=== PATIENT | female | born 1990 | race Caucasian/White ===

== ENCOUNTER → 2017-07-03 15:29 | Outpatient (CLI) | payer OTHER, SELFPAY ==
[2017-07-03 17:48] LABS: Hematocrit 29.4 % (37-47); Hemoglobin 9.6 g/dl (12.0-15.0); Mean Corp Hgb Conc 32.7 g/gl (32-36); Mean Corpuscular Hgb 28.4 pg (27.0-32.0); Mean Platelet Vol. 11.5 fl (6.2-12.0); Platelet Count 179 K/mm3 (150-450); RBC Distribution Width CV 12.9 % (11.6-14.6); RBC Distribution Width SD 41.1 fl (35.1-43.9); Red Blood Count 3.38 M/mm3 (4.2-5.4)
[2017-07-03 17:49] LABS: Scan Indicated on CBC? Y/N NO
[2017-07-03 17:53] LABS: Glucose Challenge Gest 1H 50g 112 mg/dL (70-140)
== END ==
PROVIDERS: Visit Provider Obstetrics & Gynecology
DX: Z34.83 Encounter for supervision of other normal pregnancy, third trimester (principal); Z3A.00 Weeks of gestation of pregnancy not specified
CPT/HCPCS: 36415; 82950; 85027

== ENCOUNTER 2017-09-18 05:30 | Inpatient (IN) | payer OTHER, SELFPAY ==
[2017-09-11 09:07] VITALS: BMI 28.4
[2017-09-18] VITALS (20 sets, daily range): BP systolic 90–116; BP diastolic 47–76; PULSE 70–104; RESP 16–20; TEMP 36.1–36.9; O2SAT 94–100
[2017-09-18] MEDS: Lactated Ringers 1,000 ML 999 ML IV (06:00)
[2017-09-18 06:19] LABS: Mean Corp Hgb Conc 32.3 g/gl (32-36); Mean Corpuscular Hgb 26.2 pg (27.0-32.0); Mean Corpuscular Volume 81.4 fL (81-99); Mean Platelet Vol. 11.1 fl (6.2-12.0); Platelet Count 142 K/mm3 (150-450); RBC Distribution Width SD 44.3 fl (35.1-43.9); Red Blood Count 3.81 M/mm3 (4.2-5.4)
[2017-09-18 06:27] LABS: Prothrombin Time (Protime)PT. 13.3 SECONDS (11.7-14.9)
[2017-09-18 06:28] LABS: Partial Thromboplast Time 28.9 Seconds (24.1-36.2)
[2017-09-18 06:36] LABS: Scan Indicated on CBC? Y/N NO
[2017-09-18] MEDS: Lactated Ringers 1,000 ML 150 ML IV (06:53)
[2017-09-18] MEDS: Sodium Citrate/Citric Acid 30 ML UDC PO (06:53)
[2017-09-18] MEDS: Clindamycin 900 MG/50 ML BAG 75 MG IV (07:19)
[2017-09-18] MEDS: Ferrous Sulfate 325 MG Tablet PO (10:43)
[2017-09-18] MEDS: Prenatal Vits Tablet 1 TABLET PO (10:44)
[2017-09-18] MEDS: DiphenhydrAMINE 25 MG Capsule PO (10:44)
[2017-09-18] MEDS: 0.9% Saline Lock 10 ML Syringe IV (14:09)
[2017-09-18] MEDS: Ketorolac 30 MG/ML Syringe IV ×2 (14:09→20:40)
[2017-09-18] MEDS: Lactated Ringers 1,000 ML 100 ML IV (18:34)
--- NOTE | 2017-09-18 21:23 | PCM.OP.BLANK ---
Operative Report Date of Procedure: 09/18/17 PROCEDURE: Repeat C SECTION, lysis of adhesions Preoperative diagnosis: 39+ wk EGA Prior C section, planned repeat C section Postop diagnosis: 39+ wk EGA Prior C section, planned repeat C section Anesthesia: Spinal per Dahiana Cortes MD Surgeon: Leticia Chacon MD Menagerie Superintendent: DOMI Escobar EBL 800 cc Complications: none Drains: Nevarez draining clear yellow urine Fluids: replacement LR Findings: At amniotomy, clear fluid was noted. Avilez viable female vertex presentation. Apgars 8/9. Baby weight:7# 6 oz There was a normal appearing uterus, fallopian tubes and ovaries bilaterally. There was a dense adhesion noted between the posterior surface of the anterior abdominal wall and the L uterine fundus. PATH: Routine cord gases Narrative account: After the risks, benefits and alternatives of the procedure were reviewed with the patient, informed consent was obtained. The patient was taken to the Operating room with an IV running . She was placed in a seated position on the operating room table and a Spinal was administered. The patient was the repositioned to the dorsal supine position with leftward displacement of the uterus , briefly frog-legged for placement of the Nevarez catheter under sterile technique, and then repositioned again to dorsal supine position with leftward displacement of the uterus, and prepped and draped in the usual sterile fashion. Once the spinal was deemed adequate, a Pfannenstiel skin incision was created using the knife . The incision was carried down to the rectus fascia using the knife. The fascia was nicked in the midline. The fascial incision was extended bilaterally using curved Faulkner scissors. The superior aspect of the fascial incision was grasped with Annalisa clamps and tented up and the underlying rectus abdominal muscles were dissected free. In a similar manner, the inferior aspect of the facial incision was grasped with Annalisa clamps tented up and the underlying rectus abdominal muscles were dissected free. The rectus abdominis muscles divided in the midline by blunt dissection . The peritoneum was identified and entered by sharp dissection. The peritoneal incision was extended inferiorly and then superiorly using Metzenbaum scissors. There was a dense adhesion noted at the left anterior uterine fundus. The peritoneum was stretched laterally and a bladder blade was inserted. The uterine incision was then created using Metzenbaum scissors.The uterine incision was extended by blunt dissection in a caudad- cephalad orientation using the tin tie machine operator automatic's fingertips. Clear fluid was noted at amniotomy. The vertex was then delivered. The OP and nares were bulb suctioned on the abdomen. The shoulders delivered easily. The umbilical cord clamped times two and cut. The baby girl was shown briefly to her parents and then passed off to the nurse awaiting delivery. The baby had a spontaneous, vigorous cry. The umbilical cord was doubly clamped for later cord gas collection. The placenta was then delivered. The uterus was exteriorized and cleared of clots and debris and the uterine incision tagged with Ring clamps as needed for hemostasis. The dense adhesion between the anterior abdominal wall and the left uterine fundus was doubly clamped divided, and ligated at both ends. Excellent hemostasis was noted. The cervix was the dilated with a ring forceps which was then passed off the field. The uterine incision was repaired with 0 Vicryl in a running locked fashion. A second imbricating layer was then placed, using 0 Monocryl in running nonlocked fashion. The uterus, fallopian tubes and ovaries were then inspected and returned to the abdominal cavity. The gutters were cleared of clots and debris. The uterine incision and fallopian tubes were again inspected. Excellent hemostasis was noted. Ruben was dusted over the uterine incision and anterior uterine fundus at the site of the adhesiolysis, for continued hemostasis. The rectus abdominis and peritoneal edges were reapproximated in the midline with interrupted vertical mattress stitches of 0 Vicryl . Excellent hemostasis was noted at the subfascial space Ruben was lightly dusted on this layer. The fascia was closed in a running nonlocked fashion Stratofix. The Subcutaneous fatty tissue was Bovie cauterized as needed for hemostasis. This layer was then reapproximated with a nonlocked running 3-0 Vicryl. The skin edges were closed in a Subcuticular stitch of 4-0 Monocryl. The incision was cleansed, and a sterile dressing (Mepilex) was applied. The patient was then transferred to the recovery room bed in stable condition after tolerating the procedure well. Sponge, lap, needle and instrument counts correct times two. Medications given preop and intraoperatively included: Ancef two grams IV given assistant front desk manager to the operating room. The patient also received Pitocin given IV after cord clamp, and Toradol 30 mg IV after cord clamp. For a complete listing of medications given preop and intraoperatively, please see the anesthesia record.
[2017-09-19] VITALS (7 sets, daily range): BP systolic 102–115; BP diastolic 49–62; PULSE 74–99; RESP 16–18; TEMP 36.7–37.5; O2SAT 95–99
[2017-09-19] MEDS: Ketorolac 30 MG/ML Syringe IV ×2 (02:24→08:03)
[2017-09-19 06:09] LABS: Hematocrit 22.9 % (37-47); Hemoglobin 7.5 g/dl (12.0-15.0); Mean Corp Hgb Conc 32.8 g/gl (32-36); Mean Corpuscular Hgb 26.6 pg (27.0-32.0); Mean Corpuscular Volume 81.2 fL (81-99); Mean Platelet Vol. 10.6 fl (6.2-12.0); Platelet Count 115 K/mm3 (150-450); RBC Distribution Width CV 15.2 % (11.6-14.6); Red Blood Count 2.82 M/mm3 (4.2-5.4); White Blood Count 8.9 K/mm3 (4.4-11.0)
[2017-09-19 06:11] LABS: Scan Indicated on CBC? Y/N NO
[2017-09-19] MEDS: 0.9% Saline Lock 10 ML Syringe IV (08:03)
[2017-09-19] MEDS: Ferrous Sulfate 325 MG Tablet PO ×2 (08:03→15:49)
--- NOTE | 2017-09-19 08:12 | PCM.PN.OB ---
Subjective: POD#1 repeat C section Doing well. no concerns. Pain control adequate and IV to saline lock to continue toradol today. No n/v. No dizziness or feeling week. + flatus. - Physical Exam General: Alert, Oriented x3, Cooperative, No apparent distress HEENT: Atraumatic Neck: Supple Abdomen: Soft - fundus firm NT at approx 1 cm inferior to umbilicus Skin: Incision - Mepilex intact. Minimal shadow drainage noted on R side each less than 5 mm size Neurological: Cranial nerves II-XII grossly intact Psych/Mental Status: Normal Affect Vital Signs Temp Pulse Resp BP Pulse Ox 99.0 F 76 16 115/52 L 97 09/19/17 07:45 09/19/17 07:45 09/19/17 07:45 09/19/17 07:45 09/19/17 07:45 Oxygen Delivery Method Room Air Weight: 70.5 kg Body Mass Index (BMI) 28.4 Intake and Output for Last 24 Hours 09/17/17 09/18/17 09/19/17 23:59 23:59 23:59 Intake Total 4700 / 4700 1000 / 1000 Output Total 2200 / 2200 2800 / 2800 Balance 2500 / 2500 -1800 / -1800 Laboratory Tests Past 24 Hrs 09/19/17 06:06 WBC 8.9 RBC 2.82 L Hgb 7.5 L Hct 22.9 L MCV 81.2 MCH 26.6 L MCHC 32.8 RDW 15.2 H RDW Differential 45.0 H Plt Count 115 L MPV 10.6 Medical Necessity - Tobacco Use Smoking Status: Never smoker Assessment/Plan POD#1 repeat C section Stable postop. Inc diet and activity as tolerated. Begin po meds. Voiding trial . IV to S/L for continue Toradol today. Acute blood loss anemia superimposed on iron deficiency anemia of . VSS and asx. Repeat CBC tomorrow. Iron bid planned Continue care.
--- NOTE | 2017-09-19 08:18 | PCM.DCCSEC ---
Discharge Diet: No Restrictions Return to work on:: 11/05/17 May resume sexual activity in: 4-6 weeks Lifting Restrictions: 20 pounds Additional Activity Instructions:: Nothing in the vagina for 4-6 weeks. You may return to work/school in 6 weeks. Change Dressing in (Days):: 4 Remove Dressing in (days):: 4 Cleanse incision/area with: Soap & Water, Keep Dressing Clean & Dry Additional Instructions: If you experience any of the following, contact your healthcare provider. Bleeding that soaks a pad every hour for 2 hours Fever 100.4 or higher Unrelieved incision or abdominal pain Swelling, redness, discharge or bleeding from your incision Problems urinating (including inability to urinate or burning while urinating). Visual changes Severe headache Flu-like symptoms Pain or redness in one of both of your breasts Pain, warmth, tenderness or swelling in your legs, especially the calf area Frequent nausea and vomiting Symptoms of depression or anxiety If you experience any of the following, call 911 or go to the nearest Emergency Room. Chest pain Problems breathing Seizure activity Partial or complete paralysis of a body part, slurred speech, weakness or drooping of the face, or a sudden inability to walk or hold your balance Allergies/Adverse Reactions: Allergies Penicillins Allergy (Verified 09/18/17 06:22) Unknown Medications to take at Discharge Vits [Prenatabs FA ] 1 tablet PO DAILY 09/11/17 Acetaminophen [Tylenol] 1,000 mg PO Q8H PRN tablet 09/19/17 Ferrous Sulfate 325 mg PO BID #60 09/19/17 Naproxen [Naprosyn] 250 - 500 mg PO Q8H PRN PRN #30 tab 09/19/17 Oxycodone [Oxyir] 5 - 10 mg PO Q4H PRN PRN 7 Days #28 tablet 09/19/17 Senna/Docusate Sodium [Senokot-S] 1 - 2 tab PO DAILY PRN #30 tab 09/19/17 The following prescriptions were given: Oxycodone [Oxyir] 5 - 10 mg PO Q4H PRN PRN 7 Days #28 tablet PRN Reason: Mod-Severe Pain (-01/30) Naproxen [Naprosyn] 250 - 500 mg PO Q8H PRN PRN #30 tab PRN Reason: Mild Pain (-06/30) Senna/Docusate Sodium [Senokot-S] 1 - 2 tab PO DAILY PRN #30 tab PRN Reason: Constipation Ferrous Sulfate 325 mg PO BID #60 Orders to be completed after discharge: Electric breast pump Time Frame: 1 Year, Location: None Selected Follow-Up: Call to make an appointment with your doctor for an incision check in 1-2 weeks. You will also need a 6 week post- follow up appointment. Please Follow Up With: Leticia Chacon MD - [phone] When: Call to make an appointment for an incision check in 2 weeks. Primary Care Physician: Salvador Burton MD [Primary Care Provider] - Proposed Discharge Date: 09/20/17
--- NOTE | 2017-09-19 08:23 | DCINST_ITS ---
Discharge Diet: No Restrictions Return to work on:: 11/05/17 May resume sexual activity in: 4-6 weeks Lifting Restrictions: 20 pounds Additional Activity Instructions:: Nothing in the vagina for 4-6 weeks. You may return to work/school in 6 weeks. Change Dressing in (Days):: 4 Remove Dressing in (days):: 4 Cleanse incision/area with: Soap & Water, Keep Dressing Clean & Dry Additional Instructions: If you experience any of the following, contact your healthcare provider. * Bleeding that soaks a pad every hour for 2 hours * Fever 100.4 or higher * Unrelieved incision or abdominal pain * Swelling, redness, discharge or bleeding from your incision * Problems urinating (including inability to urinate or burning while urinating) . * Visual changes * Severe headache * Flu-like symptoms * Pain or redness in one of both of your breasts * Pain, warmth, tenderness or swelling in your legs, especially the calf area * Frequent nausea and vomiting * Symptoms of depression or anxiety If you experience any of the following, call 911 or go to the nearest Emergency Room. * Chest pain * Problems breathing * Seizure activity * Partial or complete paralysis of a body part, slurred speech, weakness or drooping of the face, or a sudden inability to walk or hold your balance Allergies/Adverse Reactions: Allergies Penicillins Allergy (Verified 09/18/17 06:22) Unknown Medications to take at Discharge Vits [Prenatabs FA ] 1 tablet PO DAILY 09/11/17 Acetaminophen [Tylenol] 1,000 mg PO Q8H PRN tablet 09/19/17 Ferrous Sulfate 325 mg PO BID #60 09/19/17 Naproxen [Naprosyn] 250 - 500 mg PO Q8H PRN PRN #30 tab 09/19/17 Oxycodone [Oxyir] 5 - 10 mg PO Q4H PRN PRN 7 Days #28 tablet 09/19/17 Senna/Docusate Sodium [Senokot-S] 1 - 2 tab PO DAILY PRN #30 tab 09/19/17 The following prescriptions were given: Oxycodone [Oxyir] 5 - 10 mg PO Q4H PRN PRN 7 Days #28 tablet PRN Reason: Mod-Severe Pain () Naproxen [Naprosyn] 250 - 500 mg PO Q8H PRN PRN #30 tab PRN Reason: Mild Pain (-06/30) Senna/Docusate Sodium [Senokot-S] 1 - 2 tab PO DAILY PRN #30 tab PRN Reason: Constipation Ferrous Sulfate 325 mg PO BID #60 Orders to be completed after discharge: Electric breast pump Time Frame: 1 Year, Location: None Selected Follow-Up: Call to make an appointment with your doctor for an incision check in 1-2 weeks. You will also need a 6 week post- follow up appointment. Please Follow Up With: Leticia Chacon MD - [phone] When: Call to make an appointment for an incision check in 2 weeks. Primary Care Physician: Salvador Burton MD [Primary Care Provider] - Proposed Discharge Date: 09/20/17
[2017-09-19] MEDS: Prenatal Vits Tablet 1 TABLET PO (10:52)
--- NOTE | 2017-09-19 14:03 | NURSING ---
urine this morning, unmeasured times 2
[2017-09-19] MEDS: Naproxen 250 MG Tablet PO (14:31)
[2017-09-19] MEDS: Acetaminophen 500 MG Tablet 1000 MG PO (15:48)
[2017-09-20] MEDS: Acetaminophen 500 MG Tablet 1000 MG PO ×2 (02:10→10:23)
[2017-09-20 02:15] VITALS: BP 118/70; PULSE 83; RESP 18; TEMP 36.5; O2SAT 97
[2017-09-20 05:30] LABS: Hematocrit 23.6 % (37-47); Hemoglobin 7.6 g/dl (12.0-15.0); Mean Corp Hgb Conc 32.2 g/gl (32-36); Mean Corpuscular Hgb 27.1 pg (27.0-32.0); Mean Corpuscular Volume 84.3 fL (81-99); Mean Platelet Vol. 10.9 fl (6.2-12.0); Platelet Count 134 K/mm3 (150-450); RBC Distribution Width CV 14.9 % (11.6-14.6); RBC Distribution Width SD 44.1 fl (35.1-43.9); White Blood Count 10.1 K/mm3 (4.4-11.0)
[2017-09-20 05:31] LABS: Scan Indicated on CBC? Y/N NO
--- NOTE | 2017-09-20 07:16 | PCM.PN.OB ---
Subjective: POD#2 Repeat C/S Doing well. Breast feeding. Pain control adequate. Would like to go home today. Asking about driving, wound care - Physical Exam General: Alert, Oriented x3, Cooperative, No apparent distress HEENT: Atraumatic Neck: Supple Abdomen: Soft - Fundus firm NT at 1-2 cm inferior to umbilicus Skin: Incision - Mepilex CDI. no shadow drainage Neurological: Cranial nerves II-XII grossly intact Psych/Mental Status: Normal Affect Vital Signs Temp Pulse Resp BP Pulse Ox 97.7 F L 83 18 118/70 97 09/20/17 02:15 09/20/17 02:15 09/20/17 02:15 09/20/17 02:15 09/20/17 02:15 Oxygen Delivery Method Room Air Weight: 70.5 kg Body Mass Index (BMI) 28.4 Intake and Output for Last 24 Hours 09/18/09/19/17 09/20/17 23:59 23:59 23:59 Intake Total 4700 / 4700 1000 / 1000 Output Total 2200 / 2200 2800 / 2800 Balance 2500 / 2500 -1800 / -1800 Laboratory Tests Past 24 Hrs 09/20/17 05:25 WBC 10.1 RBC 2.80 L Hgb 7.6 L Hct 23.6 L MCV 84.3 MCH 27.1 MCHC 32.2 RDW 14.9 H RDW Differential 44.1 H Plt Count 134 L MPV 10.9 Medical Necessity - Tobacco Use Smoking Status: Never smoker Assessment/Plan POD#2 repeat C section Stable postop. Acute blood loss anemia superimposed on iron deficiency anemia of . STABLE CBC. VSS and asx. Iron bid planned Dischg home per pt request. RTO in 2 wk for postop incision check. Reviewed dischg instructions, wound care.
--- NOTE | 2017-09-20 07:18 | PCM.DC.SUM ---
Discharge Date and Diagnosis Date of Admission: 09/18/17 - 39 wk repeat C/S Date of Discharge: 09/20/17 - same Hospital Course and Treatment Operations: - - Repeat C section Summary of Care Provided: The patient is a 27 year old female at 39 + wk EGA presents for scheduled repeat C/S. C/S performed on 09/18/17. Adhesion noted at uterine fundus to abdominal wall. Procedure uncomplicated. Delivered horton viable female Ap 8/9. Wt 7# 6 oz. Postop recovery course uneventful. Acute blood loss anemia superimposed in iron deficiency anemia of . Hgb stable at 7.6 g/dl. on repeat evaluation. Pt asymptomatic and vitals stable. requested dischg home on POD#2 RTO in 2 wk for postop exam. Discharge Diet: No Restrictions Return to work on:: 11/05/17 May resume sexual activity in: 4-6 weeks Additional Activity Instructions:: Nothing in the vagina for 4-6 weeks. You may return to work/school in 6 weeks. Change Dressing in (Days):: 4 Remove Dressing in (days):: 4 Cleanse incision/area with: Soap & Water, Keep Dressing Clean & Dry Home Medications: Medications to take at Discharge Vits [Prenatabs FA ] 1 tablet PO DAILY 09/11/17 Acetaminophen [Tylenol] 1,000 mg PO Q8H PRN tablet 09/19/17 Ferrous Sulfate 325 mg PO BID #60 09/19/17 Naproxen [Naprosyn] 250 - 500 mg PO Q8H PRN PRN #30 tab 09/19/17 Oxycodone [Oxyir] 5 - 10 mg PO Q4H PRN PRN 7 Days #28 tablet 09/19/17 Senna/Docusate Sodium [Senokot-S] 1 - 2 tab PO DAILY PRN #30 tab 09/19/17 Following Prescrptions Were Given to Patient: Oxycodone [Oxyir] 5 - 10 mg PO Q4H PRN PRN 7 Days #28 tablet PRN Reason: Mod-Severe Pain (4-10/10) Naproxen [Naprosyn] 250 - 500 mg PO Q8H PRN PRN #30 tab PRN Reason: Mild Pain (1-3/10) Senna/Docusate Sodium [Senokot-S] 1 - 2 tab PO DAILY PRN #30 tab PRN Reason: Constipation Ferrous Sulfate 325 mg PO BID #60 Other Amb Orders: Electric breast pump Time Frame: 1 Year, Location: None Selected Primary Care Physician: Salvador Burton MD [Primary Care Provider] - Please Follow Up With: Leticia Chacon MD - [phone] When: Call to make an appointment for an incision check in 2 weeks. Medical Necessity - Tobacco Use Smoking Status: Never smoker Meaningful Use Info Meaningful Use Diagnoses (Choose all that apply): None applicable
[2017-09-20 08:00] VITALS: BP 105/61; PULSE 77; RESP 15; TEMP 36.3
[2017-09-20] MEDS: Senna/Docusate Sodium 1 Tablet PO (08:42)
[2017-09-20] MEDS: Ferrous Sulfate 325 MG Tablet PO (08:57)
[2017-09-20] MEDS: Prenatal Vits Tablet 1 TABLET PO (10:20)
--- NOTE | 2017-09-20 11:55 | NURSING ---
infant and maternal bracelet numbers match; infant placed in car seat per mother dc to home
== END 2017-09-20 12:05 | disposition home health service (06) | DRG 765 ==
PROVIDERS: Admitting Provider Obstetrics & Gynecology; Family Provider Family Medicine; PCP Family Medicine; Visit Provider Obstetrics & Gynecology
PROC: 10D00Z1 Extraction of Products of Conception, Low, Open Approach (ICD-10-PCS; CPT 59514; principal; 2017-09-18 07:15)
DX: O34.219 Maternal care for unspecified type scar from previous cesarean delivery (principal); D62 Acute posthemorrhagic anemia; Z3A.39 39 weeks gestation of pregnancy; Z37.0 Single live birth; O99.02 Anemia complicating childbirth; D50.9 Iron deficiency anemia, unspecified
CPT/HCPCS: 85027; 85610; 85730; 86850; 86900; 99218; J7120; A4216; G0378; J2405

== ENCOUNTER → 2019-05-16 10:11 | Outpatient (CLI) | payer OTHER, SELFPAY | PROVIDERS: Visit Provider Obstetrics & Gynecology | DX: Z12.4 Encounter for screening for malignant neoplasm of cervix (principal); Z11.3 Encounter for screening for infections with a predominantly sexual mode of transmission ==

== ENCOUNTER → 2020-02-17 11:56 | Outpatient (CLI) | payer OTHER, SELFPAY ==
[2017-09-11 09:07] VITALS: BMI 28.4
[2020-02-17 13:47] LABS: Absolute Lymphocyte Count 1.16 X10^3/uL (0.83-4.51); Absolute Neutrophil Count 3.8 X10^3/uL (2.0-7.7); Basophil# 0.01 X10^3/uL; Basophil% 0.2 % (0-1); Eosinophil# 0.05 X10^3/uL; Eosinophils% 0.9 % (0-5); Hematocrit 33.9 % (37-47); Lymphocyte # 1.16 X10^3/ul (4.0); Lymphocyte % 20.8 % (19-41); Mean Corp Hgb Conc 32.4 g/dL (32-36); Mean Corpuscular Hgb 26.4 pg (27.0-32.0); Mean Corpuscular Volume 81.3 fL (81-99); Mean Platelet Vol. 12.6 fl (6.2-12.0); Monocyte# 0.56 X10^3/uL; NRBC Flagged by Analyzer 0 % (0-5); Neutrophil # 3.79 X10^3/uL (2.7-7.7); Neutrophil % 67.7 % (47-70); Platelet Count 222 K/mm3 (150-450); RBC Distribution Width CV 14.7 % (11.6-14.6); RBC Distribution Width SD 42.4 fl (35.1-43.9); Red Blood Count 4.17 M/mm3 (4.2-5.4); White Blood Count 5.6 K/mm3 (4.4-11.0)
[2020-02-17 13:51] LABS: Color, Urine Yellow (Yellow); Glucose, Dipstick Normal (Normal); Ketone-Dipstick Negative (Negative); Leukocyte Esterase-Dipstick Negative /ul (Negative); Nitrite-Dipstick Negative (Negative); Occult Blood-Urine Negative /ul (Negative); Protein-Dipstick Negative (Negative); Urine Bilirubin Dipstick Negative (Negative); Urine Clarity Clear (Clear); Urine Urobilinogen Normal (Normal)
[2020-02-17 14:04] LABS: Amphetamine Urine VISTA NEGATIVE (<1000 ng/mL); Barbiturate Urine VISTA NEGATIVE (< 200 ng/mL); Benzodiazepine Urine VISTA NEGATIVE (< 200 ng/mL); Cocaine Urine VISTA NEGATIVE (< 300 ng/mL); Ecstacy Urine VISTA NEGATIVE (< 500 ng/mL); Methadone Urine VISTA NEGATIVE (< 300 ng/mL); PCP Urine VISTA NEGATIVE (< 25 ng/mL); THC Urine VISTA NEGATIVE (< 50 ng/mL); Vista UDS pH Range 6
[2020-02-17 14:09] LABS: Thyroid Stim Hormone (TSH) 1.54 uIU/mL (0.358-3.74)
[2020-02-17 14:44] LABS: HIV - WCH Non-Reactive (Nonreactive); Hepatitis B Surface Antigen Non-Reactive (Nonreactive); Hepatitis C Antibody Non-Reactive (Nonreactive); Rubella IgG 329.6 IU/mL
[2020-02-19 01:11] LABS: Prenatal RPR NONREACTIVE (NONREACTIVE)
[2020-02-20 03:06] LABS: Chlamydia By Nucleic Acid AMP Negative (Negative)
[2020-02-20 06:45] LABS: Gonococcus By Nucleic Acid AMP Negative (Negative)
== END ==
PROVIDERS: Visit Provider Obstetrics & Gynecology
DX: Z34.81 Encounter for supervision of other normal pregnancy, first trimester (principal)
CPT/HCPCS: 36415; 80307; 81002; 84443; 85025; 86703; 86762; 86803; 87340; 87491; 87591

== ENCOUNTER → 2020-07-05 14:03 | Outpatient (CLI) | payer OTHER, SELFPAY ==
[2017-09-11 09:07] VITALS: BMI 28.4
[2020-07-05 15:22] LABS: Hematocrit 32.6 % (37-47); Hemoglobin 10.5 g/dL (12.0-15.0); Mean Corp Hgb Conc 32.2 g/dL (32-36); Mean Corpuscular Volume 90.1 fL (81-99); Platelet Count 200 K/mm3 (150-450); RBC Distribution Width SD 45.8 fl (35.1-43.9); Red Blood Count 3.62 M/mm3 (4.2-5.4); White Blood Count 6.3 K/mm3 (4.4-11.0)
[2020-07-05 15:30] LABS: Glucose Challenge Gest 1H 50g 113 mg/dL (70-140)
== END ==
PROVIDERS: Visit Provider Student in an Organized Health Care Education/Training Program
DX: Z34.82 Encounter for supervision of other normal pregnancy, second trimester (principal)
CPT/HCPCS: 36415; 82950; 85027

== ENCOUNTER → 2020-09-10 | Outpatient (CLI) | payer OTHER, SELFPAY ==
[2017-09-11 09:07] VITALS: BMI 28.4
== END | disposition home or self-care (01) ==
LOC: LABSPEC 15:10
PROVIDERS: Visit Provider Obstetrics & Gynecology
DX: Z36.85 Encounter for antenatal screening for Streptococcus B (principal)
CPT/HCPCS: 87081

== ENCOUNTER → 2020-09-24 | Outpatient (CLI) | payer OTHER, SELFPAY | END | disposition home or self-care (01) | LOC: LABSPEC 15:38 | PROVIDERS: PCP Family Medicine; Referring Provider Obstetrics & Gynecology; Visit Provider Obstetrics & Gynecology | DX: Z03.818 Encounter for observation for suspected exposure to other biological agents ruled out (principal) | CPT/HCPCS: 87635; C9803; U0005; U0003 ==

== ENCOUNTER 2020-09-28 05:00 | Inpatient (IN) | payer OTHER, SELFPAY ==
[2017-09-11 09:07] VITALS: BMI 28.4
[2020-09-28] VITALS (32 sets, daily range): BP systolic 80–122; BP diastolic 39–71; PULSE 49–129; RESP 12–20; TEMP 35.5–36.6; O2SAT 96–100; BMI 28.5
[2020-09-28] MEDS: Lactated Ringers 1,000 ML 999 ML IV (05:23)
[2020-09-28 05:50] LABS: Absolute Lymphocyte Count 0.92 X10^3/uL (0.83-4.51); Absolute Neutrophil Count 4.7 X10^3/uL (2.0-7.7); Basophil# 0.02 X10^3/uL; Basophil% 0.3 % (0-1); Eosinophil# 0.11 X10^3/uL; Eosinophils% 1.8 % (0-5); Hemoglobin 9.6 g/dL (12.0-15.0); Lymphocyte # 0.92 X10^3/ul (0.83-4.51); Mean Corp Hgb Conc 33.1 g/dL (32-36); Mean Corpuscular Hgb 29.5 pg (27.0-32.0); Mean Corpuscular Volume 89.2 fL (81-99); Mean Platelet Vol. 11.7 fl (6.2-12.0); Monocyte# 0.38 X10^3/uL; Monocyte% 6.2 % (0-10); NRBC Flagged by Analyzer 0 % (0-5); Neutrophil # 4.65 X10^3/uL (2.7-7.7); Neutrophil % 75.6 % (47-70); Platelet Count 126 K/mm3 (150-450); RBC Distribution Width CV 13.5 % (11.6-14.6); RBC Distribution Width SD 43.9 fl (35.1-43.9); Red Blood Count 3.25 M/mm3 (4.2-5.4); White Blood Count 6.2 K/mm3 (4.4-11.0)
[2020-09-28] MEDS: Acetaminophen 500 MG Tablet 1000 MG PO ×2 (05:59→14:51)
[2020-09-28] MEDS: Lactated Ringers 1,000 ML 150 ML IV (06:24)
[2020-09-28] MEDS: Sodium Citrate/Citric Acid 30 ML UDC PO (07:10)
--- NOTE | 2020-09-28 07:43 | FALS_PTH ---
PATIENT: CARIE WARNER LOC: [facility] U#:[id number] AGE/SX: 30/F ROOM: [facility]009 RE09/28/[address]: Dr. Adelita Carter MD : [id number] BED: 1 DIS: 10/01/2020 SPEC #: [id number] RECD: 09/28/20 09:11 STATUS: TRISH REAl #: [id number] COLE: 09/28/20 07:[address]: Adelita Em DEPT: SURGICAL PATHOLOGY RECD BY: Opal Pope ENTERED: 09/28/20 09:51 SP TYPE: FALL TUBES OTHR DR: Dr. Trena Wallace, DO Tissues: Fallopian tube Procedures: Surgery Specimen Level II HEADER OPERATION: Tubal ligation PRE-OP DIAGNOSIS: Sterilization TISSUE SUBMITTED: Fallopian tubes MICROSCOPIC DIAGNOSIS Bilateral fallopian tubes, salpingectomy: Bilateral fallopian tubes, no pathologic diagnosis. JASPER:mackenzie 09/29/2020 MICROSCOPIC DESCRIPTION Slides are reviewed. GROSS DESCRIPTION Received in fixative is one container labeled with the patient's name and designated bilateral fallopian tubes, left suture. The specimen consists of bilateral fallopian tubes including fimbrial ends. The right fallopian tube measures 7 cm in length and 0.4 cm in diameter and the left fallopian tube measures 8 cm in length and 0.5 cm in diameter. Sections reveal unremarkable cut surfaces. [facility] sections are submitted in two cassettes as follows: 1 ? right fallopian tube, 2 ? left fallopian tube. / JASPER:mackenzie 09/28/20 TC:4 CPT: 36884 x2
--- NOTE | 2020-09-28 08:43 | PCM.HP.OB ---
HPI - General General Date of Admission: 09/28/20 HPI Narrative CARIE WARNER, is a 30 F @ 39 wga who presents for scheduled repeat section and bilateral salpingectomy. Maternal Data Information ERMA Calculator Estimated Delivery Date Method Current WG Current Estimate 10/05/20 Manual 39w 0d [facility] Medical History (Updated 09/28/20 @ 08:[address] Adelita Carter MD) Polyhydramnios Home Medications Prenatabs FA 1 tab PO DAILY 09/11/17 [History Last Taken 09/27/20] Ferrous Sulfate 325 mg PO BID #60 09/19/17 [Rx Last Taken 09/26/20] calcium mg PO 09/28/20 [History Last Taken 09/26/20] magnesium 100 mg PO DAILY 09/28/20 [History Last Taken 09/26/20] Allergy/AdvReac Type Severity Reaction Status Date / Time Penicillins Allergy Unknown Unknown Verified 09/28/20 05:23 Family History (Updated 09/28/20 @ 08:[address] Adelita Carter MD) Father Hypertension Surgical History (Updated 09/28/20 @ 08:[address] Adelita Carter MD) Previous section [place] teeth removed Social History Smoking Status: Never smoker History 3 Elective abortions 0 Hx Para 2 Spontaneous abortions 0 Hx # Term Pregnancies 2 Ectopic pregnancies 0 Hx # Pregnancies 0 Multiple births 0 # of living children 2 Vital Signs Vital Signs Vital Signs: 09/28/20 05:48 09/28/20 06:00 Temperature 97.5 F L Temperature Source Temporal Pulse Rate 97 Pulse Rhythm Regular Respiratory Rate 18 Respiratory Effort Normal Non-Labored Respiratory Depth Normal Respiratory Pattern Normal Blood Pressure 122/71 H Blood Pressure Mean 88 Blood Pressure Source Monitor Blood Pressure Position Semi-Fowlers Blood Pressure Location Left Arm Pulse Ox 97 Oxygen Delivery Method Room Air Room Air Weight Weight: 70.67 kg Body Mass Index (BMI) 28.5 Physical Exam Const alert, oriented x3 and no apparent distress HEENT normocephalic Resp normal respiratory effort and normal air movement Cardio regular rate and regular rhythm GI soft to palpation, non-tender and non-distended Inspection: gravid Labs Labs Labs: Blood Type A POSITIVE Antibody Screen NEGATIVE Hct 29.0 % (37-47) L Hgb 9.6 g/dL (12.0-15.0) L Rubella IgG Antibody 329.6 IU/mL Hep Bs Antigen Non-Reactive (Nonreactive) Neisseria gonorrhoeae DNA (KEVEN) Negative (Negative) HIV 1&2 Antibody Non-Reactive (Nonreactive) C.trachomatis DNA (PCR) Negative (Negative) Glucose 1 Hr 50 gm 113 mg/dL (70-140) Rhogam given: No Miscellaneous Test Assessment & Plan (1) 39 weeks gestation of : PLAN: Proceed with repeat C/S, bilateral salpingectomy as planned.
[2020-09-28] MEDS: Ondansetron 4 MG/2 ML Vial IV (08:59)
--- NOTE | 2020-09-28 08:59 | EX.PCM.OBRPT ---
Assessment & Plan (1) Encounter for sterilization: (2) Delivery by section: Maternal Data Information ERMA Calculator Estimated Delivery Date Method Current WG Current Estimate 10/05/20 Manual 40w 3d Details Operative Information Date of Procedure: 09/28/20 Pre-Operative Diagnosis: 1. 39 weeks gestation 2. History prior section x 2 3. Sterilization request Post-Operative Diagnosis: 1. 39 weeks gestation 2. History prior section x 2 3. Sterilization request Indications for : Repeat Elective and Desires elective sterilization Indications Narrative: 30yo @ 39 weeks gestation presents for scheduled repeat section and tubal sterilization. Procedural r/b/i/a were reviewed and patient desired to proceed. Classification: Scheduled Procedure Type: bilateral salpingectomy quality assurance specialist #1: Rohith Lorenzo Type of Anesthesia: Spinal Anesthesiologist: Miguel Vivar Antibiotic Given: Clindamycin 600mg IV x1 and Gentamicin 1.5mg/kg IV x1 Drain: Nevarez to straight drain Estimated Blood Loss: 900 ml Fluids Replaced: 800 ml Findings Description of Procedure: The patient was taken to the operating room and spinal analgesia was administered. She is placed in a dorsal supine position with left lateral tilt. The perineum and abdomen were prepped and draped in sterile fashion. The spinal was found to be adequate. A Pfannenstiel incision was made using a scalpel and brought down to incise the subcutaneous tissue and rectus fascia at the midline. Subcutaneous tissue was bluntly dissected off the fascia laterally. The fascial incision was dissected laterally and cephalad using curved Faulkner scissors. The superior leaflet of the rectus fascia was grasped using Annalisa clamps and bluntly dissected and sharply dissected from the underlying rectus muscle. In a similar fashion the inferior rectus fascia was dissected from the underlying muscle. I attempted to bluntly separate the rectus muscles at the midline, however, these were densely adherent do each other. Sharp dissection was performed with the Bovie and the Metzembaum scissors however I was unable to identify peritoneum separately and on separation of the rectus muscles the prior hysterotomy was opened and bag of water was visualized suspicious for a window. I proceeded with sharp dissection of the rectus abdominus muscle off the superior hysterotomy edge until there was full visualization of the hysterotomy. The head was elevated and brought to the level of the hysterotomy with spontaneous rupture of membranes and the infant delivered revealing vigorous a vigorous [male] infant. The cord was doubly clamped and cut after 30 seconds. The was passed to awaiting [nursery personnel]. The placenta was [expressed] from the uterus and appeared intact on inspection. The uterus was cleared of debris. The hysterotomy was then repaired using 0 Vicryl running lock suture. There was still some small amount of bleeding from the hysterotomy edge. I further sharply dissected remaining rectus muscular adhesion from uterus just superior to the hysterotomy that was also obstructing the adnexae to free additional tissue for imbrication, with this I was able to access the bilateral adnexae as well. A second imbricating layer was also placed for additional hemostasis. The bladder blade was removed. The uterus was exteriorized. The right adnexa was identified with a tubal fimbria. Salpingectomy was performed using the LigaSure device transecting the mesosalpinx to the level of the level of the uterine cornua. In similar fashion salpingectomy was also performed at the left. The uterus and adnexa were returned to the abdomen and the bladder blade repositioned. Ruben was placed along the site of prior uterine adhesions for additional hemostasis. The bladder blade was removed and anterior cul-de-sac was cleared of debris. The peritoneum and rectus muscles were reapproximated using 2-0 Vicryl running suture. The rectus fascia was closed using 0 strata fix running suture. The subcutaneous tissue was reapproximated using 2-0 Vicryl. The skin was closed using 4-0 Monocryl subcuticularly by the CLIENT CARE SPECIALIST under my supervision. Mepilex occlusive dressing was placed over the incision. The fundus was firm. The patient was then transferred to the recovery room without complication. Sponge, instrument, and needle counts were correct ?2. Anterior abdominal wall adhesion between the abdominal rectus muscles and the uterus present. Presentation: Positive for Vertex Amniotic Membrane Rupture Type: Spontaneous Amniotic Fluid Description: Clear Placental Delivery Description: Spontaneous Placenta Disposition: [facility] Cord Vessel Description: 3 Vessels Cord Entanglement: Around neck x 1, loose Nuchal Cord Compression: Without compression Infant A Gender: Male (1 minute): 8 (5 minute): 9 Delayed Cord Clamping: Yes Complications Risks of Surgery Discussed w/Patient: Bleeding, Anesthesia Risks, Infection, Permanency, Failure Rate of 1 to 2%, Injury to surrounding structure(s) including bowel and bladder and Availability of other non-permanent control options
[2020-09-28] MEDS: Oxytocin 30 units/NS 500 ml 30 UNITS/500 ML IV.SOLN 167 UNITS IV (09:00)
[2020-09-28 09:11] LABS: Pathology Specimen OB SEE PATHOLOGY REPORT
[2020-09-28] MEDS: Ketorolac 30 MG/ML Syringe IV ×3 (09:15→21:57)
--- NOTE | 2020-09-28 09:40 | NURSING ---
Patient warm to touch.
--- NOTE | 2020-09-28 09:50 | NURSING ---
Different thermometer obtained. Patient's oral temperature 97.5 F with new thermometer. Additional blanket applied.
[2020-09-28] MEDS: Methylergonovine 0.2 MG/ML Ampul IM (09:54)
--- NOTE | 2020-09-28 11:10 | NURSING ---
Helped mother initiate pumping at 1030am , tolerated well. Did have to move to a smaller flange size for optimal fit, Nursed her other two children. denied pain and was able to collect 3 swabs of colostrum and brought to [facility]
--- NOTE | 2020-09-28 11:35 | NURSING ---
Patient in [facility] to visit .
[2020-09-28 11:45] LABS: Bedside Glucose 106 mg/dL (70-110)
--- NOTE | 2020-09-28 11:47 | NURSING ---
Addendum entered by Leticia Flynn RN 09/28/20 12:17: Dr. Khurram Carter updated on all vital signs, including temperature readings. Original Note: Call placed to Dr. Khurram Carter to update on patient. Patient extremely nauseated and clammy. Vitals stable. Bleeding appropriate. Blood glucose 108. Order to give Compazine, obtain CBC now, and orthostatic blood pressures when patient is back to room.
[2020-09-28] MEDS: proCHLORPERazine 10 MG/2 ML Vial IV (11:53)
[2020-09-28] MEDS: 0.9% Saline Lock 10 ML Syringe IV ×2 (11:55→12:40)
[2020-09-28] MEDS: Lactated Ringers 500 ML 999 ML IV (12:10)
--- NOTE | 2020-09-28 12:10 | NURSING ---
Orthostatic blood pressures attempted. Unable to obtain in standing position as patient felt like she was going to pass out. Dr. Khurram Carter updated on most recent vitals. Order to start 500 mL fluid bolus and Dr. Khurram Carter will be in to assess patient.
--- NOTE | 2020-09-28 12:20 | NURSING ---
Dr. Khurram Carter in room to assess.
[2020-09-28 12:27] LABS: Absolute Lymphocyte Count 1.05 X10^3/uL (0.83-4.51); Absolute Neutrophil Count 12.8 X10^3/uL (2.0-7.7); Basophil# 0.03 X10^3/uL; Basophil% 0.2 % (0-1); Eosinophil# 0.04 X10^3/uL; Eosinophils% 0.3 % (0-5); Hematocrit 28.5 % (37-47); Hemoglobin 9.3 g/dL (12.0-15.0); Lymphocyte # 1.05 X10^3/ul (0.83-4.51); Lymphocyte % 7.1 % (19-41); Mean Corp Hgb Conc 32.6 g/dL (32-36); Mean Corpuscular Hgb 29.2 pg (27.0-32.0); Mean Corpuscular Volume 89.3 fL (81-99); Mean Platelet Vol. 11.9 fl (6.2-12.0); Monocyte# 0.71 X10^3/uL; Monocyte% 4.8 % (0-10); NRBC Flagged by Analyzer 0 % (0-5); Neutrophil # 12.84 X10^3/uL (2.7-7.7); Neutrophil % 86.9 % (47-70); Platelet Count 183 K/mm3 (150-450); RBC Distribution Width CV 13.8 % (11.6-14.6); RBC Distribution Width SD 44.2 fl (35.1-43.9); Red Blood Count 3.19 M/mm3 (4.2-5.4); White Blood Count 14.8 K/mm3 (4.4-11.0)
--- NOTE | 2020-09-28 12:29 | PN.OBGYN_ITS ---
Subjective Subjective Reports dizziness while standing, recent nausea and vomiting. Denies shortness of breath or chest pain. Incisional pain well controlled. Objective Data Objective Data Vital Signs: Vital Signs Temp Pulse Resp BP Pulse Ox 97.4 F L 71 16 89/51 L 98 09/28/20 12:07 09/28/20 12:19 09/28/20 12:13 09/28/20 12:19 09/28/20 12:19 Oxygen Delivery Method Room Air Weight: 70.67 kg Body Mass Index (BMI) 28.5 Intake & Output: Intake and Output for Last 24 Hours 09/26/20 09/27/20 09/28/20 23:59 23:59 23:59 Intake Total 3252.25 / 3252.25 Output Total 835 / 835 Balance 2417.25 / 2417.25 Lab / Micro Data Result Diagrams: 09/28/20 12:10 Labs: Laboratory Results - last 24 hr 09/28/20 09/28/20 09/28/20 05:40 05:40 11:40 WBC 6.2 RBC 3.25 L Hgb 9.6 L Hct 29.0 L MCV 89.2 MCH 29.5 MCHC 33.1 RDW Std Deviation 43.9 RDW Coeff of Josue 13.5 Plt Count 126 L MPV 11.7 Immature Gran % (Auto) 1.100 H Neut % (Auto) 75.6 H Lymph % (Auto) 15.0 L [place] % (Auto) 6.2 Eos % (Auto) 1.8 Baso % (Auto) 0.3 Absolute Neuts (auto) 4.7 Absolute Lymphs (auto) 0.92 Nucleated RBC % 0 POC Glucose 106 Blood Type A POSITIVE Antibody Screen NEGATIVE 09/28/20 12:10 WBC 14.8 H RBC 3.19 L Hgb 9.3 L Hct 28.5 L MCV 89.3 MCH 29.2 MCHC 32.6 RDW Std Deviation 44.2 H RDW Coeff of Josue 13.8 Plt Count 183 MPV 11.9 Immature Gran % (Auto) 0.700 Neut % (Auto) 86.9 H Lymph % (Auto) 7.1 L [place] % (Auto) 4.8 Eos % (Auto) 0.3 Baso % (Auto) 0.2 Absolute Neuts (auto) 12.8 H Absolute Lymphs (auto) 1.05 Nucleated RBC % 0 POC Glucose Blood Type Antibody Screen Physical Exam Const alert, oriented x3 and no apparent distress General Appearance: cooperative and comfortable HEENT normocephalic Resp normal respiratory effort, normal air movement and clear to auscultation bilaterally GI normal to inspection, nondistended, normoactive bowel sounds, soft to palpation, non-tender and non-distended Narrative: Moderate lochia, no clots on fundal check; fundus firm and nontender Extremity no calf tenderness and no pedal edema Assessment & Plan (1) Delivery by section: (2) Hypotension: QUALIFIERS: Hypotension type: postprocedural hypotension Qualified Code(s): I95.81 - Postprocedural hypotension PLAN: Hgb 9.6->9.3 Exam unremarkable and no evidence of bleed Suspect low BP 2/2 Duramorph, will give Narcan. Complete IV fluid bolus
--- NOTE | 2020-09-28 12:30 | NURSING ---
Order from Dr. Khurram Carter to administer Narcan 0.4 mg per protocol. If blood pressures remain low, call anesthesia.
[2020-09-28] MEDS: Lactated Ringers 1,000 ML 100 ML IV ×2 (12:39→19:05)
[2020-09-28] MEDS: Naloxone 0.4 MG/ML Syringe IV (12:40)
--- NOTE | 2020-09-28 12:50 | NURSING ---
Dr. Vivar from anesthesia called about patient's low blood pressures. Dr. Vivar will be in to assess.
--- NOTE | 2020-09-28 13:01 | NURSING ---
Dr. Vivar in room. 10 mg IV ephedrine given. 25 mg IM ephedrine given per Dr. Vivar.
--- NOTE | 2020-09-28 14:03 | NURSING ---
Call received from Dr. Khurram Carter. Updated that patient is no longer light headed. Blood pressure is 99/57. Patient is also no longer nauseated. Continue plan of care.
--- NOTE | 2020-09-28 15:56 | NURSING ---
Bedside report given to Hemal Hill RN.
[2020-09-28 19:57] LABS: Hematocrit 22.5 % (37-47); Hemoglobin 7.4 g/dL (12.0-15.0); Mean Corp Hgb Conc 32.9 g/dL (32-36); Mean Corpuscular Hgb 29.6 pg (27.0-32.0); Mean Platelet Vol. 11.5 fl (6.2-12.0); Platelet Count 140 K/mm3 (150-450); RBC Distribution Width CV 13.8 % (11.6-14.6); RBC Distribution Width SD 45.1 fl (35.1-43.9); White Blood Count 11.9 K/mm3 (4.4-11.0)
--- NOTE | 2020-09-28 21:37 | NURSING ---
IBCLC in room to assist mother with this pumping session. Reviewed how to set up pump & colostrum dust collector operator together for pumping. Mother using smaller lieberman based on the size of her nipple. Encouraged Mother to start pumping vacuum low and speed high (70-80) for 2 mins then switch to a vacuum level that is stronger,but not painful, and a speed of 40-50 for the remainder of her pumping session (15-20min) in order to mimic how a baby breastfeeds. Mother is pumping every 3hrs. Encouraged follow up with dept. after discharge as needed. Explained the follow up support and care [facility] offers
[2020-09-29] VITALS (15 sets, daily range): BP systolic 91–124; BP diastolic 35–70; PULSE 94–122; RESP 16–18; TEMP 36.6–37; O2SAT 95–98
[2020-09-29] MEDS: Acetaminophen 500 MG Tablet 1000 MG PO ×5 (00:02→23:57)
[2020-09-29] MEDS: Ketorolac 30 MG/ML Syringe IV (03:49)
[2020-09-29 06:51] LABS: Absolute Lymphocyte Count 0.61 X10^3/uL (0.83-4.51); Absolute Neutrophil Count 7.4 X10^3/uL (2.0-7.7); Basophil# 0.01 X10^3/uL; Basophil% 0.1 % (0-1); Hematocrit 17.5 % (37-47); Lymphocyte # 0.61 X10^3/ul (0.83-4.51); Mean Corp Hgb Conc 33.1 g/dL (32-36); Mean Corpuscular Hgb 29.6 pg (27.0-32.0); Mean Corpuscular Volume 89.3 fL (81-99); Mean Platelet Vol. 10.9 fl (6.2-12.0); Monocyte# 0.62 X10^3/uL; Monocyte% 7.1 % (0-10); NRBC Flagged by Analyzer 0 % (0-5); Neutrophil # 7.36 X10^3/uL (2.7-7.7); Neutrophil % 84.7 % (47-70); POSITIVE COUNT YES; Platelet Count 122 K/mm3 (150-450); RBC Distribution Width CV 14.1 % (11.6-14.6); RBC Distribution Width SD 45.1 fl (35.1-43.9); Red Blood Count 1.96 M/mm3 (4.2-5.4); White Blood Count 8.7 K/mm3 (4.4-11.0)
[2020-09-29 06:54] LABS: Differential Indicated SCAN CRITERIA MET
[2020-09-29 06:57] LABS: Hemoglobin 5.8 g/dL (12.0-15.0)
--- NOTE | 2020-09-29 06:59 | PN.OBGYN_ITS ---
Subjective Subjective Reports lightheadedness resolved. Denies palpitations, chest pain, shortness of breath. She was OOB to chair and wheeled to the special care nursery. She is and pumping. Working on latch. Denies heavy lochia. Objective Data Objective Data Vital Signs: Vital Signs Temp Pulse Resp BP Pulse Ox 98.1 F 106 H 18 103/50 L 96 09/29/20 00:08 09/29/20 05:40 09/29/20 05:40 09/29/20 04:19 09/29/20 05:40 Oxygen Delivery Method Room Air Weight: 70.67 kg Body Mass Index (BMI) 28.5 Intake & Output: Intake and Output for Last 24 Hours 09/27/20 09/28/20 09/29/20 23:59 23:59 23:59 Intake Total 4607.58 / 4607.58 941.67 / 941.67 Output Total 1135 / 1135 650 / 650 Balance 3472.58 / 3472.58 291.67 / 291.67 Lab / Micro Data Result Diagrams: 09/29/20 06:40 Labs: Laboratory Results - last 24 hr 09/28/20 09/28/20 09/28/20 11:40 12:10 19:47 WBC 14.8 H 11.9 H RBC 3.19 L 2.50 L Hgb 9.3 L 7.4 L Hct 28.5 L 22.5 L MCV 89.3 90.0 MCH 29.2 29.6 MCHC 32.6 32.9 RDW Std Deviation 44.2 H 45.1 H RDW Coeff of Josue 13.8 13.8 Plt Count 183 140 L MPV 11.9 11.5 Immature Gran % (Auto) 0.700 Neut % (Auto) 86.9 H Lymph % (Auto) 7.1 L [place] % (Auto) 4.8 Eos % (Auto) 0.3 Baso % (Auto) 0.2 Absolute Neuts (auto) 12.8 H Absolute Lymphs (auto) 1.05 Nucleated RBC % 0 POC Glucose 106 09/29/20 06:40 WBC 8.7 RBC 1.96 L Hgb Hct 17.5 L MCV 89.3 MCH 29.6 MCHC 33.1 RDW Std Deviation 45.1 H RDW Coeff of Josue 14.1 Plt Count 122 L MPV 10.9 Immature Gran % (Auto) 1.100 H Neut % (Auto) 84.7 H Lymph % (Auto) 7.0 L [place] % (Auto) 7.1 Eos % (Auto) 0.0 Baso % (Auto) 0.1 Absolute Neuts (auto) 7.4 Absolute Lymphs (auto) 0.61 L Nucleated RBC % 0 POC Glucose Physical Exam Const alert, oriented x3 and no apparent distress Resp normal respiratory effort, normal air movement and clear to auscultation bilaterally Cardio regular rate, regular rhythm, S1 normal heart sound and S2 normal heart sound GI normal to inspection, nondistended, normoactive bowel sounds, soft to palpation, non-tender and non-distended GI Narrative: incisional dressing c/d/i Manual OB Exam: other lochia scant Uterus Palpation: uterus fundus firm Extremity no calf tenderness Assessment & Plan (1) Delivery by section: PLAN: Routine postop care A positive Rub imm/HBsAg neg/HIV neg/RPR nr (2) Postoperative anemia due to acute blood loss: PLAN: Transfuse 2U PRBC
[2020-09-29] MEDS: 0.9% Saline Lock 10 ML Syringe IV ×3 (08:48→14:56)
[2020-09-29] MEDS: Senna/Docusate Sodium 1 Tablet PO (10:54)
[2020-09-29] MEDS: Prenatal Vits Tablet 1 TABLET PO (10:54)
[2020-09-29] MEDS: Ibuprofen 600 MG Tablet PO ×3 (10:54→21:06)
[2020-09-29] MEDS: Ferrous Sulfate 325 MG Tablet PO ×2 (12:16→16:48)
[2020-09-29 13:18] LABS: Pathologist Review Reviewed
[2020-09-29] MEDS: oxyCODONE 5 MG Tablet PO (22:23)
[2020-09-30] MEDS: Ibuprofen 600 MG Tablet PO ×4 (02:40→21:38)
[2020-09-30 02:43] VITALS: BP 102/43; PULSE 95; RESP 18
[2020-09-30] MEDS: Acetaminophen 500 MG Tablet 1000 MG PO ×3 (05:36→18:41)
[2020-09-30 05:49] LABS: Hematocrit 21.4 % (37-47); Mean Corp Hgb Conc 32.7 g/dL (32-36); Mean Corpuscular Hgb 28.8 pg (27.0-32.0); Mean Corpuscular Volume 88.1 fL (81-99); Platelet Count 107 K/mm3 (150-450); RBC Distribution Width CV 14.9 % (11.6-14.6); RBC Distribution Width SD 47.5 fl (35.1-43.9); Red Blood Count 2.43 M/mm3 (4.2-5.4); White Blood Count 8.6 K/mm3 (4.4-11.0)
[2020-09-30 07:39] VITALS: BP 121/56; PULSE 84; RESP 16; TEMP 36.3; O2SAT 97
--- NOTE | 2020-09-30 08:38 | PCM.PN.OB ---
Subjective Subjective Pain is improved today. Passing flatus. OOB and ambulating without dizziness or lightheadedness. Denies palpitations or heart racing. No heavy lochia. Objective Data Objective Data Vital Signs: Vital Signs Temp Pulse Resp BP Pulse Ox 97.4 F L 84 16 121/56 H 97 09/30/20 07:39 09/30/20 07:39 09/30/20 07:39 09/30/20 07:39 09/30/20 07:39 Oxygen Delivery Method Room Air Weight: 70.67 kg Body Mass Index (BMI) 28.5 Intake & Output: Intake and Output for Last 24 Hours 09/28/20 09/29/20 09/30/20 23:59 23:59 23:59 Intake Total 4607.58 / 4607.58 3341.67 / 3341.67 Output Total 1135 / 1135 1400 / 1400 Balance 3472.58 / 3472.58 1941.67 / 1941.67 Lab / Micro Data Result Diagrams: 09/30/20 05:40 Labs: Laboratory Results - last 24 hr 09/28/20 09/29/20 09/30/20 05:40 06:40 05:40 WBC 8.6 RBC 2.43 L Hgb 7.0 L Hct 21.4 L MCV 88.1 MCH 28.8 MCHC 32.7 RDW Std Deviation 47.5 H RDW Coeff of Josue 14.9 H Plt Count 107 L MPV 11.0 [address] Review Reviewed Crossmatch See Detail Physical Exam Const alert, oriented x3 and no apparent distress Resp normal respiratory effort, normal air movement and clear to auscultation bilaterally Cardio regular rate, regular rhythm, S1 normal heart sound and S2 normal heart sound GI normal to inspection, nondistended, normoactive bowel sounds, soft to palpation, non-tender and non-distended Manual OB Exam: other lochia scant Uterus Palpation: uterus fundus firm Extremity no calf tenderness Assessment & Plan (1) Delivery by section: PLAN: Routine postop care A positive Rub imm/HBsAg neg/HIV neg/RPR nr Infant remains in Special Care Nursery Plan for d/c home tomorrow (2) Postoperative anemia due to acute blood loss: PLAN: s/p 2 u prbc with symptomatic anemia resolved
[2020-09-30] MEDS: Senna/Docusate Sodium 1 Tablet PO (09:27)
[2020-09-30] MEDS: Prenatal Vits Tablet 1 TABLET PO (09:27)
[2020-09-30] MEDS: Ferrous Sulfate 325 MG Tablet PO ×2 (12:11→18:42)
[2020-09-30] MEDS: oxyCODONE 5 MG Tablet PO (13:37)
[2020-09-30 13:44] VITALS: BP 126/71; PULSE 93; RESP 16; TEMP 36.4; O2SAT 98
[2020-09-30 21:31] VITALS: BP 124/72; PULSE 99; RESP 16; TEMP 36.4
[2020-10-01] MEDS: Acetaminophen 500 MG Tablet 1000 MG PO ×2 (00:33→06:30)
[2020-10-01 02:57] VITALS: BP 112/76; PULSE 79; RESP 16
[2020-10-01] MEDS: Ibuprofen 600 MG Tablet PO ×2 (03:03→09:13)
--- NOTE | 2020-10-01 08:55 | DS.PCM_ITS ---
Providers Date of Admission: 09/28/20 Primary Care Physician: Dr. Trena Wallace, DO Reason For Visit: C SECTION Diagnosis Discharge Diagnosis (1) Encounter for sterilization: Status: Acute Code(s): Z30.2 - Encounter for sterilization (2) Delivery by section: Status: Acute (3) Postoperative anemia due to acute blood loss: Status: Acute Code(s): D62 - Acute posthemorrhagic anemia Medications at Discharge Home Medications Prenatabs FA 1 tab PO DAILY 09/11/17 Ferrous Sulfate 325 mg PO BID #60 09/19/17 calcium mg PO 09/28/20 magnesium 100 mg PO DAILY 09/28/20 ibuprofen 600 mg PO Q8H PRN PRN #30 tab NS 10/01/20 oxycodone 5 mg PO Q6H PRN PRN 7 Days #20 tab 10/01/20 Hospital Course Operations section Procedures None Summary of Care Provided Hospital Course: 30-year-old 3 para 2-0-0-2 presented at 39 weeks gesta tional age for scheduled repeat section #3 and tubal sterilization procedure. She underwent a repeat low transverse section and bilateral salpingectomy. Her postoperative course was complicated by acute symptomatic postop anemia with hemoglobin sandee into 5.8. She received 2 units of packed RBCs. Her hemoglobin improved to 7.0 and she was asymptomatic. She is discharged home on postoperative day #2. Physical Exam Const alert, oriented x3 and no apparent distress Resp normal respiratory effort, normal air movement and clear to auscultation bilaterally Cardio regular rate and regular rhythm GI normal to inspection, nondistended, normoactive bowel sounds, soft to palpation, non-tender and non-distended GI Narrative: incisional dressing c/d/i Manual OB Exam: other lochia scant Uterus Palpation: uterus fundus firm Extremity no calf tenderness Weight / BMI Weight Weight: 70.67 kg Body Mass Index (BMI) 28.5 ABG / Lab / Microbiology Data Result Diagrams: 09/30/20 05:40 Laboratory: Laboratory Results - last 24 hr 09/28/20 05:40 Crossmatch See Detail D/C Instructions Discharge Diet: No restrictions May resume sexual activity in: 4-6 weeks Lifting Restricted to (Lbs): 20 Call your doctor if you observe: Fever of 101 or Higher, Using more than 1 pad per hour, Shortness of breath, Chest pain, Calf discomfort, Uncontrolled pain and - (Persistent or severe headache) Remove Dressing in: 4 days Cleanse incision/area with: Soap & Water Please Follow Up With: Adelita Em MD When: 2 weeks for postop visit 6 weeks for visit Meaningful Use Info Meaningful Use Diagnoses (Choose all that apply): None applicable Discharge Plan Admission Admit Date/Time: 09/28/20 05:00 Primary Reason for Your Visit: section Attending Provider: Adelita Em Primary Care Provider: Trena Wallace Instructions Patient Instructions: Anemia, After a Discharge Orders/Prescriptions Prescriptions: New ibuprofen 600 mg Tablet 600 mg PO Q8H PRN PRN (Reason: pain) Qty: 30 RF: 0 oxycodone 5 mg Tablet 5 mg PO Q6H PRN PRN (Reason: Pain (Scale Score 7-10)) 7 Days Qty: 20 RF: 0 Continued Prenatabs FA 1 TABLET tablet 1 tab PO DAILY RF: 0 Ferrous Sulfate 325 mg PO BID Qty: 60 RF: 0 calcium 250 mg Tablet PO RF: 0 magnesium 100 mg Capsule 100 mg PO DAILY RF: 0 Referrals / Follow Up: Trena Wallace DO [Primary Care Provider] - Disposition Disposition (needs filled in before D/C Order can be placed): Home, self care
[2020-10-01 09:00] VITALS: BP 121/79; PULSE 94; RESP 16; TEMP 36.2
[2020-10-01] MEDS: Senna/Docusate Sodium 1 Tablet PO (09:14)
[2020-10-01] MEDS: Prenatal Vits Tablet 1 TABLET PO (09:14)
== END 2020-10-01 10:00 | disposition home or self-care (01) | DRG 784 ==
PROVIDERS: Admitting Provider Obstetrics & Gynecology; PCP Family Medicine; Visit Provider Obstetrics & Gynecology
PROC: 10D00Z1 Extraction of Products of Conception, Low, Open Approach (ICD-10-PCS; CPT 59514; principal; 2020-09-28 07:15)
DX: O34.211 Maternal care for low transverse scar from previous cesarean delivery (principal); D62 Acute posthemorrhagic anemia; O69.81X0 Labor and delivery complicated by cord around neck, without compression, not applicable or unspecified; Z30.2 Encounter for sterilization; O90.81 Anemia of the puerperium; I95.2 Hypotension due to drugs; T40.2X5A Adverse effect of other opioids, initial encounter; Y92.239 Unspecified place in hospital as the place of occurrence of the external cause; Z88.0 Allergy status to penicillin; Z3A.39 39 weeks gestation of pregnancy; Z37.0 Single live birth
CPT/HCPCS: 82962; 85025; 85027; 86850; 86900; 86901; 86920; 88302; 94660; 94799; 99218; J7030; J7120; P9016; A4216; G0378; J2310; J2405